=== PATIENT | female | born 1990 | race Caucasian/White ===

== ENCOUNTER → 2021-09-04 14:41 | Outpatient (BNVA) | payer OTHER, SELFPAY | PROVIDERS: Visit Provider Family Medicine | DX: F90.9 Attention-deficit hyperactivity disorder, unspecified type (principal); Z76.89 Persons encountering health services in other specified circumstances; Z12.4 Encounter for screening for malignant neoplasm of cervix | CPT/HCPCS: 80053; 85025 ==

== ENCOUNTER → 2021-10-16 13:02 | Outpatient (BNVA) | payer OTHER, SELFPAY | PROVIDERS: Visit Provider Nurse Practitioner Women's Health | DX: Z01.419 Encounter for gynecological examination (general) (routine) without abnormal findings (principal) | CPT/HCPCS: 87624 ==

== ENCOUNTER → 2023-08-13 14:24 | Outpatient (BNVA) | payer OTHER, SELFPAY | PROVIDERS: PCP Family Medicine; Visit Provider Family Medicine | DX: F90.9 Attention-deficit hyperactivity disorder, unspecified type (principal) | CPT/HCPCS: 80053; 85027 ==